=== PATIENT | female | born 1975 | race American Indian/Alaskan Native ===

== ENCOUNTER 2021-07-09 08:34 | Day surgery (SDC) | payer MEDICAID ==
--- NOTE | 2021-07-09 07:29 | Short Stay Summary ---
Short Stay Documentation Date of service: 07/09/21 Narrative H&P: 46-year-old with a history of severe cervical dysplasia. The patient underwent a colposcopy with findings of high-grade squamous intraepithelial lesion at the 12 o'clock position on the ectocervix. The patient elected to undergo LEEP procedure for cure of her dysplasia. - History Principal diagnosis: Severe cervical dysplasia Past Medical History: hyperlipidemia, other (Anxiety) Past Surgical History: Other (Foot and leg surgery) Social history: single, smoking - Allergies and Medications Current Medications: Allergies No Known Allergies Allergy (Verified 01/31/14 23:56) Home Medications Medication Instructions Recorded Confirmed Last Taken Type Apple Cider Vinegar Gummies 1 dose PO DAILY 07/07/21 Unknown History Flibanserin [Addyi] 100 mg PO DAILY 07/07/21 07/07/21 Unknown History Neuriva Original 100-100Mg Cap 100 mg PO DAILY 07/07/21 07/07/21 Unknown History Thyroid Hp 30 mg PO DAILY 07/07/21 Unknown History Vitamin C 1 tab PO DAILY 07/07/21 07/07/21 Unknown History - Physical exam General appearance: no acute distress Integumentary: no rash HEENT: Atraumatic Lungs: Clear to auscultation Breasts: deferred Heart: Regular rate Gastrointestinal: normal Female Genitourinary: deferred - Brief post op/procedure progress note Date of procedure: 07/09/21 Pre-op diagnosis: Severe cervical dysplasia Post-op diagnosis: same Procedure: Loop electrocautery excision procedure Endocervical curettage Anesthesia: GETA Surgeon: GHISLAINE JULES Estimated blood loss: 50-100ml Pathology: list (Ectocervix and endocervical curettings) Specimen disposition: to lab Condition: stable - Hospital course Hospital course: The patient was admitted the day of surgery underwent a LEEP and an ECC. Please see operative note for details of surgery. Her postoperative course was uneventful. - Disposition Condition at discharge: Good Disposition: 01 HOME / SELF CARE / HOMELESS Short Stay Discharge Plan Activity: other (Pelvic rest for 4 weeks) Diet: regular Additional Instructions: Schedule follow-up with Dr. Jules in 4 weeks Pelvic rest for 4 weeks Prescriptions: Ibuprofen [Motrin] 800 mg PO Q8HR PRN #30 tablet PRN Reason: Pain , Severe (7-10) HYDROcodone/APAP 5-325 [[place] 5/325] 1 each PO Q6HR PRN #15 tablet PRN Reason: Pain
[~2021-07-09 08:34] MED LIST: ceFAZolin/Water 2 GM/20 ML 2 GM/20 ML SYRINGE IV NR
[2021-07-09] MEDS ORDERED: LACTATED RINGERS 1,000 ML IV SCH (09:30)
--- NOTE | 2021-07-09 09:50 | Anesthesia Day of Surgery ---
Anesthesia Day of Surgery - Day of Surgery Patient Examined: Yes Patient H&P Reviewed: Yes Patient is NPO: Yes
--- NOTE | 2021-07-09 09:51 | Anesthesia Consultation ---
Anesthesia Consult and Med Hx Date of service: 07/09/21 - Airway Anesthetic Teeth Evaluation: Chipped (Missing), Caps ROM Head & Neck: Adequate Mental/Hyoid Distance: Adequate Mallampati Class: Class II Intubation Access Assessment: Good - Pre-Operative Health Status ASA Pre-Surgery Classification: ASA2 Proposed Anesthetic Plan: General - Pulmonary Hx Smoking: Yes Hx Sleep Apnea: No - Cardiovascular System Hx Hypertension: No Hx Heart Attack/AMI: No - Central Nervous System Hx Back Pain: No Hx Psychiatric Problems: No - Endocrine Hx Renal Disease: Yes (Donated one kidney) Hx Thyroid Disease: Yes Hx Hypothyroidism: Yes - Hematic Hx Anemia: No Hx Sickle Cell Disease: No - Other Systems Hx Alcohol Use: Yes (OCC.) Hx Substance Use: Yes (MARIJUANA QOD) Hx Cancer: No Hx Obesity: No
[2021-07-09] MEDS ORDERED: MIDAZOLAM 2 MG/2 ML INJ ONE (09:55)
[2021-07-09] MEDS ORDERED: ONDANSETRON 4 MG/2 ML INJ IV PRN (10:00)
[2021-07-09] MEDS ORDERED: MIDAZOLAM 2 MG/2 ML INJ IV NR (10:00)
[2021-07-09] MEDS ORDERED: HYDROmorphone 1 MG/1 ML INJ IV PRN ×2 (10:00)
[2021-07-09] MEDS ORDERED: POTASSIUM IODIDE/IODINE (LUGOLS) 30 ML TP ONE ×2 (10:00→11:12)
[2021-07-09] MEDS ORDERED: ACETIC ACID 3% SOLN 60 ML TP ONE (10:00)
[2021-07-09] MEDS ORDERED: FERRIC SUBSULFATE TOPICAL SOLN 8 ML TP ONE ×3 (10:00→11:12)
[2021-07-09] MEDS ORDERED: propofoL 200 MG/20 ML VIAL IV ONE (10:18)
[2021-07-09] MEDS ORDERED: LIDOCAINE MPF (2%) 20 MG/1 ML VIAL 5 ML ONE (10:18)
[2021-07-09] MEDS ORDERED: fentaNYL 100 MCG/2 ML INJ ONE (10:18)
[2021-07-09] MEDS ORDERED: ONDANSETRON 4 MG/2 ML INJ ONE (10:18)
[2021-07-09] MEDS ORDERED: dexAMETHasone 20 MG/5 ML VIAL ONE (10:45)
[2021-07-09] MEDS ORDERED: SODIUM CHLORIDE 0.9% IRR 1,000 ML BOTTLE IR ONE (11:08)
[2021-07-09] MEDS ORDERED: KETOROLAC 30 MG/1 ML INJ ONE (11:11)
[2021-07-09] MEDS ORDERED: LACTATED RINGERS 1,000 ML ONE (11:16)
--- NOTE | 2021-07-09 11:21 | Operative Report ---
Operative Report Operative Report: Date of procedure: July 09, 2021 Pre-operative diagnosis: Severe cervical dysplasia; high-grade squamous in traepithelial lesion Post-operative diagnosis: Same as above Procedure name(s): Loop electrocautery excision procedure; endocervical curettage Surgeon: Makenna Acosta M.D. Estimated blood loss: 100 mL Anesthesia: General endotracheal anesthesia Findings Nonstaining Lugol's of the ectocervix at 1 to 12 o'clock position Pathology: Ectocervix and endocervical curettings Indication: 46-year-old -1-0-4 with a history of severe cervical dysplasia on colposcopy. Procedure Patient was taken to the operating room and given general tracheal anesthesia without complication. A timeout was performed to identify the patient and the procedure. The patient was prepped and draped in a normal sterile fashion. A coated bivalve speculum was placed in the patient's vagina. Lugol's solution was placed on the ectocervix. There was findings of nonstaining Lugol's on the ectocervix at approximately 12:00 to the 1 o'clock position. The loop was inserted vaginally with excision of the ectocervix. Endocervical curettage was performed. The cervical bed was cauterized. The site was hemostatic. Monsel solution was placed on the cervix. The vaginal instruments were removed atra umatically. The patient was successfully extubated and taken to the recovery room in stable condition. All sponge laps and needle counts were correct x2.
[2021-07-09 12:03] VITALS: BP 103/60
[2021-07-09] MEDS ORDERED: HYDROcodone/ACETAMINOPHEN 5-325 MG TAB PO PRN (12:05)
--- NOTE | 2021-07-09 15:32 | Post Anesthesia Evaluation ---
- Post Anesthesia Evaluation Patient Participated: Yes Airway Patent: Yes Stable Respiratory Function: Yes Nausea/Vomiting: No Temp > 96.8F: Yes Pain Manageable: Yes Adequeate Hydration: Yes Anesthesia Complications: No Block Receding Appropriately: Not Applicable Patient on Ventilator: No
== END 2021-07-09 12:35 | disposition home or self-care (01) ==
LOC: OR 08:34
PROVIDERS: ATTEND Obstetrics & Gynecology
DX: N87.9 Dysplasia of cervix uteri, unspecified (principal); E03.9 Hypothyroidism, unspecified; M19.90 Unspecified osteoarthritis, unspecified site; Z87.891 Personal history of nicotine dependence; Z79.899 Other long term (current) drug therapy; Z98.890 Other specified postprocedural states; Z72.89 Other problems related to lifestyle
CPT/HCPCS: 57522; 81025; 88305; 88341; 88342; J0690; J1100; J1170; J1885; J2250; J2405; J2704; J3010; J7120; 88307